=== PATIENT | female | born 1950 | race African-American/Black ===

== ENCOUNTER → 2016-12-24 | Outpatient (CLI) | payer OTHER ==
--- NOTE | ~2016-12-24 | EKG ---
[address] [place] [address] ELECTROCARDIOGRAM REPORT Name: DANETTE AVILA Room #: REG RACHEL Harper#: [id number] Admission: 12/24/16 Attend Phys: Jose Maria Vernon MD, F Discharge: Date of : 52 Report #: [id number] THIS REPORT FOR: //name// [facility] Test Date: 2016-12-24 Test Time: 13:06:46 Pat Name: DANETTE AVILA Department: Room: Gender: F Admissions Representative: Michael LONG : 1950 Requested By: Jose Maria Vernon Order Number: [id number] MD: Suhail Guillen Measurements Intervals [place] Rate: 71 P: 3 OR: 148 QRS: 16 QRSD: 88 T: 23 QT: 403 QTc: 438 Interpretive Statements Sinus rhythm Normal tracing No previous ECG available for comparison Electronically Signed On 12-25-2016 7:43:16 CDT by Suhail Guillen [email or web address] <ELECTRONICALLY SIGNED> By: Suhail Guillen MD, [facility] 12/25/16 0743 1306 1306 Suhail Guillen MD, FACC /EPI
[2016-12-24 12:44] LABS: HEMATOCRIT 40.3 % (37.0-47.0); HEMOGLOBIN 13.3 gm/dL (12.0-15.0); MCH 30.6 pg (26.0-34.0); MCHC 33.1 g/dL (28.0-37.0); MCV 92.5 fL (80.0-100.0); RBC 4.35 mil/uL (4.20-5.00); RDW 14.5 % (10.5-14.5); WBC 5.8 thou/uL (4.0-11.0)
[2016-12-24 13:53] LABS: FOLIC ACID 39.2 ng/mL (8.6-58.9)
[2016-12-24 13:57] LABS: ALBUMIN 3.4 g/dL (3.4-5.0); CREATININE 0.9 mg/dL (0.6-1.0); POTASSIUM 3.6 mmol/L (3.5-5.1); TOTAL BILIRUBIN 0.5 mg/dL (<0.1-1.0)
== END ==
LOC: RAD 11:33
PROVIDERS: Surgery
DX: E66.01 Morbid (severe) obesity due to excess calories (principal); E78.00 Pure hypercholesterolemia, unspecified; G47.30 Sleep apnea, unspecified; Z68.42 Body mass index [BMI] 45.0-49.9, adult